=== PATIENT | female | born 1970 | race Caucasian/White ===

== ENCOUNTER 2017-12-16 08:37 | Outpatient (CLI) | payer OTHER ==
--- NOTE | 2017-12-16 12:33 | MRI ---
MRI OF LEFT SHOULDER PERFORMED WITHOUT CONTRAST ENHANCEMENT: Date: 12/16/17 HISTORY: Left shoulder pain. FINDINGS: AC joint shows minimal hypertrophic change. The acromion is slightly laterally downsloping. There is a focal moderately high grade supraspinatus tendon tear that begins anteriorly and involves greater t rodriguez 50% of the thickness of the tendon, and in one area, the tendon becomes very thinned in appearanc e with only some outer bursal fibers present. In AP dimension, I would estimate this tear to extend 9 .0 mm. The infraspinatus tendon appears intact. Subscapularis muscle and tendon are normal in appearance. The biceps tendon is normal in position wit hin the bicipital groove. The inferior glenohumeral ligament is intact. I do not appreciate any definite labral abnormalities. IMPRESSION: Moderately high grade undersurface tear involving the supraspinatus tendon. The tear involves more th an 50% of the thickness of the tendon and extends to involve anterior half to two-thirds of the tendo n measuring approximately 9.0 mm in AP dimension. No muscle atrophy associated with this finding. POS: [facility]
== END 2017-12-16 08:38 | disposition home or self-care (01) ==
LOC: MRI 08:37
PROVIDERS: ATTEND Orthopaedic Surgery
DX: M25.512 Pain in left shoulder (principal); S46.812A Strain of other muscles, fascia and tendons at shoulder and upper arm level, left arm, initial encounter

== ENCOUNTER 2023-07-02 10:03 | Emergency (ER) | payer BC, OTHER ==
[2023-07-02 11:10] LABS: #Basophils 0.1 thou/uL (0.0-0.2); #Monocytes 0.5 thou/uL (0.11-0.59); #Neutrophils 5.6 thou/uL (1.40-6.50); %Basophils 0.8 % (0.0-1.0); %Eosinophils 0.4 % (0.0-10.0); %Lymphocytes 20.6 % (21.0-51.0); %Monocytes 6.1 % (0.0-10.0); %Neutrophils 71.7 % (42.0-75.0); Hematocrit 39.9 % (36.0-47.0); Hemoglobin 13.7 g/dL (12.0-16.0); Mean Corpuscular HGB CONC 34.3 g/dL (32.0-36.0); Mean Corpuscular Hemoglobin 28.4 pg (27.0-31.0); Mean Corpuscular Volume 82.6 fl (78.0-98.0); Mean Platelet Volume 9.4 fL (7.4-10.4); Platelet Count 314 10x3/uL (130-400); RBC Distribution Width 12.1 % (11.5-14.5); Red Blood Cell (RBC) Count 4.83 mill/uL (4.20-5.40); White Blood Cell (WBC) Count 7.8 10x3/uL (4.8-10.8)
[2023-07-02 11:32] LABS: ALT (SGPT) 14 U/L (8-55); AST (SGOT) 14 U/L (5-34); Albumin 4.3 g/dL (3.5-5.0); Alkaline Phosphatase 71 U/L (40-110); Anion Gap 14 mmol/L (10-20); BUN (Urea Nitrogen) 11 mg/dL (9.8-20.1); Bilirubin, Total 0.6 mg/dL (0.2-1.2); Calc. Creatinine Clearance 0 mL/min (70-130); Calcium 9.7 mg/dL (7.8-10.44); Carbon Dioxide 23 mmol/L (22-29); Chloride 106 mmol/L (98-107); Estimated GFR 94; Globulin 2.5 g/dL (2.4-3.5); Glucose 95 mg/dL (70-105); Lipase 23 U/L (8-78); Magnesium 1.9 mg/dL (1.6-2.6); Potassium 3.6 mmol/L (3.5-5.1); Protein, Total 6.8 g/dL (6.0-8.3); Sodium 139 mmol/L (136-145)
[2023-07-02] MEDS ORDERED: Lidocaine 2% Viscous Solution 10 ML, Aluminum & Magnesium Hydroxide 30 ML SSW SCH (11:45)
== END 2023-07-02 11:56 | disposition home or self-care (01) ==
LOC: ERS 10:03
DX: R07.0 Pain in throat (principal); K21.9 Gastro-esophageal reflux disease without esophagitis; I10 Essential (primary) hypertension
CPT/HCPCS: 36415; 80053; 83690; 83735; 84443; 85025; 93005